=== PATIENT | female | born 1950 | race Caucasian/White ===

== ENCOUNTER 2016-08-28 23:27 | Emergency (ER) | payer MEDICARE, OTHER ==
[2016-08-28] MEDS ORDERED: CHOLESTEROL MED (23:41)
[2016-08-28] MEDS ORDERED: XARELTO20 M1 PO (23:41)
[2016-08-29] MEDS ORDERED: NEO-SYNEPHRINE15 ML (01:25)
[2016-08-29] MEDS ORDERED: SALINE NASAL14.1 GM TP (01:25)
== END 2016-08-29 01:35 ==
LOC: EDMED 23:27
PROC: 2Y41X5Z Packing of Nasal Region using Packing Material (ICD-10-PCS; principal; 2016-08-28)
DX: R04.0 Epistaxis (principal); E03.9 Hypothyroidism, unspecified; Z85.3 Personal history of malignant neoplasm of breast; Z86.718 Personal history of other venous thrombosis and embolism; Z85.43 Personal history of malignant neoplasm of ovary; Z86.711 Personal history of pulmonary embolism; Z79.01 Long term (current) use of anticoagulants; Z90.710 Acquired absence of both cervix and uterus; Z90.13 Acquired absence of bilateral breasts and nipples; Z79.899 Other long term (current) drug therapy